=== PATIENT | male | born 1985 | race Caucasian/White ===

== ENCOUNTER 2016-08-06 20:22 | Inpatient (IN) ==
[2016-08-06] MEDS ORDERED: 0.9 % Sodium Chloride 1,000 ML IVC SCH (22:30)
--- NOTE | 2016-08-06 22:57 | Internal Med History&Physical ---
<Wisam Zavala - Last Filed: 08/06/16 23:17> Date of Encounter: 08/06/16 Time of Encounter: 22:00 Assessment and Plan (1) Rhabdomyolysis Current visit: Yes Status: Acute - With elevated CK 1611 and dark urine noted. - Likely secondary to dehydration and/or unknown drug overdose. - Continue aggressive hydration with IV fluid. Will use 1/2 NS now given hypernatremia on initial lab. - Closely monitor with check of CK, renal function and electrolytes. Qualifiers: Rhabdomyolysis type: non-traumatic Qualified Code(s): M62.82 - Rhabdomyolysis (2) LEOPOLDO (acute kidney injury) Current visit: Yes Status: Acute - SCr 1.39. - Likely secondary to dehydration and rhabdomyolysis. - Continue hydration with IV fluid. - Avoid nephrotoxin. - Continue to monitor renal function and electrolytes. (3) Drug overdose Current visit: Yes Status: Acute - Unknown drug(s) at this time but suspect to be some kind of stimulant as patient is noted have dilated pupils and tachycardia. - The history obtained by EMS is that patient was taking Xanax and "spice" but UDS negative including benzodiazepam & THC. - Also negative for salicylates, acetaminophen and Ethanol. - Closely monitor with telemetry. - Patient is currently somnolent and confused. - Will consult social service and appreciate their assistance regarding patient' s drug abuse. - May consider psychiatric consult if patient's confusion persists. Qualifiers: Encounter type: initial encounter Injury intent: undetermined intent Qualified Code(s): T50.904A - Poisoning by unspecified drugs, medicaments and biological substances, undetermined, initial encounter (4) Leukocytosis Current visit: Yes Status: Acute - WBC 21.3 - Likely stress response to current drug overdose in the setting of hemoconcentration from dehydration. - Doubt underlying infection cause but will obtain blood cultures. - Continue to monitor. Qualifiers: Leukocytosis type: unspecified Qualified Code(s): D72.829 - Elevated white blood cell count, unspecified (5) Hyperbilirubinemia Current visit: Yes Status: Acute - Elevated total bilirubin at 2.6. - Unknown etiology at this time. - Will obtain RUQ US for further evaluation. - Continue to monitor. (6) Transaminitis Current visit: Yes Status: Acute - Slightly elevated AST and ALT. - Will obtain RUQ US for further evaluation. - Continue to monitor. Internal Medicine - H&P: HPI Chief complaint: Drug overdose Admitted From: Emergency Dept Plans for Post Hospital Care: Home History of present illness: Mr. Rodriguez is a 30 year old male was sent to [facility] ED for what appeared to be drug overdose. The history obtained by EMS is that he was taking Xanax and "spice". Apparently his mother was at the scene and was also under the influence. Patient was reported to be agitated and confused at [facility] ED where labs suggests leukocytosis, LEOPOLDO and rhabdomyolysis. Patient received 2 L of IV NS bolus and was admitted to [facility] for further evaluation and management. On the encounter in , patient is somnolent but orient to self and place. Patient says no while asking if he has chest pain/ discomfort, dyspnea, abdominal pain, fever or chills. He states he uses drug via inhalation and denies IV drug use. Patient cannot tell me the name of drug he overdosed. Patient admits smoking daily but denies alcohol use. Patient is not answering much of questions asked and not following much commands. Past Med Surg Social Fam HX - Past Medical History Medical history: no medical history Psychiatric history: no psych history - Past Surgical History Surgical History: no surgical history - Social History Smoking Status: Current every day smoker Smokeless Tobacco Status: No Alcohol use: rarely Drug use: none Internal Medicine - H&P: Meds Buprenorphine HCl/Naloxone HCl [Suboxone 8 mg-2 mg Sl Film] 1 film SL BID [History] Allergies No Known Allergies Allergy (Verified 10/17/15 13:33) ROS unobtainable: due to mental status All Systems PM: A 10-system review of systems was performed and is negative for pertinent findings except as documented above in the HPI. - Constitutional Vitals: Temp Pulse Resp BP Pulse Ox 100.2 F H 104 18 150/112 98 08/06/16 21:25 08/06/16 21:55 08/06/16 21:25 08/06/16 21:25 08/06/16 21:25 General appearance: Present: A&O X 2, no acute distress. Absent: answers questions appropriately Exam: Somnolent but arousable with verbal stimuli. Oriented to self and place. Not answering much of questions asked nor following commands. - Head Head exam: Present: atraumatic, normocephalic - Eye Eye exam: Present: EOMI, PERRL (Dilated pupils), conjuntiva pink, sclera anicteric - Neck Neck exam general surgery: Present: supple, trachea midline. Absent: lymphadenopathy - Respiratory Respiratory exam: Present: CTAB. Absent: accessory muscle use, rales, rhonchi, wheezes - Cardiovascular Cardiovascular exam: Present: +S1, +S2, tachycardia. Absent: diastolic murmur, gallop, rubs, systolic murmur - GI/Abdominal GI/Abdominal exam: Present: normal bowel sounds, soft, no peritoneal signs. Absent: distended, tenderness - Extremities Exam Extremities exam: Present: warm, radial pulses palpable and symetrical. Absent : calf tenderness, cyanotic, pedal edema - Neurological Exam Neurological exam: Present: no focal deficits. Absent: pronater drift, facial droop, speech deficit Additional comments: Limited given patient is not answering much of questions asked nor following commands. - Skin Skin exam: Present: dry, intact, warm <Mudduluru,Madhusudha R - Last Filed: 08/07/16 01:30> Date of Encounter: 08/06/16 Assessment and Plan (1) Acute encephalopathy Current visit: Yes Status: Acute Likely secondary to substance abuse/overdose/illicit drug use concern for using synthetic marijuana. I suspect he also used sympathomimetics like amphetamine. Neuro checks; seizure precautions; monitor in the step down unit. Supportive care. (2) Hypernatremia Current visit: Yes Status: Acute Likely due to dehydration. Treat with 0.45% saline infusion. Internal Medicine - H&P: HPI History of present illness: Mr. Rodriguez is a 30 year old male All Systems PM: A 10-system review of systems was performed and is negative for pertinent findings except as documented above in the HPI. - Constitutional Vitals: Temp Pulse Resp BP Pulse Ox 98.6 F 84 22 164/102 97 08/07/16 00:12 08/07/16 00:12 08/07/16 00:12 08/07/16 00:12 08/07/16 00:12 Internal Med - H&P Results - Labs Labs: Urine 08/07/16 Range/Units 00:15 Urine Color Dark Yellow (Yellow) Urine Clarity Clear (Clear) Urine pH 6.0 (5.0-8.0) pH Units Ur Specific [place] > 1.030 H (1.010-1.025) Urine Protein 100 H (Neg-Trace) mg/dL Urine Glucose (UA) Normal (Normal) mg/dL - Attending Attestation I performed history and physical examination of the patient and discussed management with resident/Gill Tender. I reviewed the resident/ Interns note and agree with the documented findings and plan of care. 30 Y/M sent to [facility], for possible drug overdose. Per the history from the EMS , as documented in the ER physicians note the pt was taking Xanax and "spice" . Apparently his mother was at the scene and was also under the influence. Patient was reported to be agitated and confused at [facility], where labs suggests leukocytosis, LEOPOLDO and rhabdomyolysis. Patient received 2 L of IV NS bolus and was admitted to [facility] for further evaluation and management. On my evaluation, pt is not answering question and seemed disoriented. Able to move extremities and neck. Review of systems; past medical, social, and family history could not could not be reviewed with the patient due to mental status changes. O/E: Cardiac: Regular rate and rhythm. Lungs clear to auscultation. Neuro: Patient is disoriented and is not answering questions. Able to move the extremities spontaneously. Labs showed hyponatremia with sodium of 147, creatinine 139, BNP 52, bilirubin 0.6, AST 98, ALT 66, creatinine kinase 1611, WBC 21.3, hemoglobin 19.3, hematocrit 55.5. Urine toxicology screen was negative. CT head reported no acute abnormalities. Chest x-ray negative. A/P: Acute encephalopathy: Likely secondary to substance abuse/overdose/illicit drug use concern for using synthetic marijuana. I suspect he also used sympathomimetics like amphetamine. Neuro checks; seizure precautions; monitor in the step down unit. Supportive care. Rhabdomyolysis: Likely secondary to substance abuse I suspect he may have used amphetamine / methamphetamine as well. Will treat him with intravenous 0.9% saline and 0.45% saline. Monitor CK levels. LEOPOLDO: likely due to rhabdomyolysis, poor oral intake, insensible losses. Patient seemed to be very hemoconcentrated. Treat with IV fluids. Transaminitis / hyperbilirubinemia: Likely due to rhabdomyolysis versus liver injury from substance abuse versus hepatitis. US scan of GB/liver, hepatitis panel, monitor LFTs.
[2016-08-06] MEDS ORDERED: Acetaminophen 325 MG TABLET PO PRN (23:27)
[2016-08-07 00:34] LABS: Bilirubin,Urine Moderate (Negative); Blood,Urine Moderate (Negative); Clarity,Urine Clear (Clear); Color,Urine Dark Yellow (Yellow); Glucose,Urine (UA) Normal (Normal); Ketones,Urine 15 mg/dL (Negative); Leukocyte Esterase,Urine Negative (Negative); Nitrite,Urine Negative (Negative); Protein,Urine 100 mg/dL (Neg-Trace); Specific Gravity,Urine > 1.030 (1.010-1.025)
[2016-08-07 00:36] LABS: Bacteria,Urine None Seen per hpf (None-Few); Hyaline Casts,Urine None Seen per lpf (None-Few); RBC,Urine 0-3 per hpf (0-3); Squamous Epithelial Cell,Urine Many per lpf (None-Few); WBC,Urine 0-3 per hpf (0-3)
[2016-08-07 05:42] LABS: Basophils % 0.1 %; Eosinophils # 0.1 K/mcL (0.0-0.6); Eosinophils % 0.3 %; Hematocrit 50.2 % (37.5-50.1); Hemoglobin 16.4 g/dL (12.9-16.9); Immature Granulocytes % 0.4 % (0-4); Lymphocytes # 2.7 K/mcL (0.6-4.6); Lymphocytes % 17.6 %; Mean Corpuscular HGB Conc 32.7 g/dL (31.6-35.5); Mean Corpuscular Hemoglobin 28.8 pg (28.0-33.3); Mean Corpuscular Volume 88.1 fL (83.0-100.0); Mean Platelet Volume 10.9 fL (9.4-12.4); Monocytes # 2.3 K/mcL (0.0-1.3); Monocytes % 14.8 %; Neutrophils # 10.2 K/mcL (1.6-8.9); Platelet Count 272 K/mcL (140-400); Red Cell Distribution Width 13.5 % (11.5-14.5); Segmented Neutrophils % 66.8 %
[2016-08-07 06:00] LABS: Alanine Aminotransferase 93 Units/L (0-55); Albumin 3.6 g/dL (3.5-5.0); Albumin/Globulin Ratio 1.1 (1.1-2.2); Alkaline Phosphatase 98 Units/L (38-126); Aspartate Amino Transferase 62 Units/L (5-34); BUN/Creatinine Ratio 31 (6-26); Bilirubin,Total 2.4 mg/dL (0.2-1.2); Blood Urea Nitrogen 34 mg/dL (8-26); Calcium 8.5 mg/dL (8.6-10.8); Carbon Dioxide 21 mEq/L (19-29); Chloride 114 mEq/L (98-109); Creatine Kinase 810 Units/L (30-200); Globulin 3.2 g/dL (2.4-3.5); Glucose 114 mg/dL (70-99); Magnesium 2.5 mg/dL (1.6-2.6); Osmolality,Calculated 312 (280-300); Phosphorous 2.6 mg/dL (2.3-4.7); Potassium 3.8 mEq/L (3.5-4.5); Sodium 147 mEq/L (136-145); Total Protein 6.8 g/dL (6.0-8.3); eGFR For African Americans > 60 (> 60); eGFR For Non-African Americans > 60 (> 60)
[2016-08-07 06:18] LABS: Hepatitis A Antibody IgM Nonreactive (Nonreactive); Hepatitis B Core IgM Nonreactive (Nonreactive); Hepatitis B Surface Antigen Nonreactive (Nonreactive); Hepatitis C Virus Antibody Nonreactive (Nonreactive)
--- NOTE | 2016-08-07 10:30 | Internal Med Progress Note ---
Date of Encounter: 08/07/16 Time of Encounter: 10:27 - Assessment and plan (1) Acute encephalopathy Current Visit: Yes Status: Acute Assessment and plan: Likely due to substance abuse, possibly synthetic marijuana per reports. Urine drug screen was negative for any drugs. Mental status noted to be improving but patient continues to have cognitive dysfunction and delirium. Continue supportive care. CT head done in the emergency room showed no acute abnormality. (2) Hypernatremia Current Visit: Yes Status: Acute Assessment and plan: Likely due to dehydration and drug abuse. Continue IV hydration and monitor serum sodium closely. (3) Cannabis abuse with intoxication delirium Current Visit: Yes Status: Acute (4) Rhabdomyolysis Current Visit: Yes Status: Acute Assessment and plan: Likely due to unknown drug abuse. Continue aggressive IV hydration, monitor serum creatinine kinase and renal function. Qualifiers: Rhabdomyolysis type: non-traumatic Qualified Code(s): M62.82 - Rhabdomyolysis (5) LEOPOLDO (acute kidney injury) Current Visit: Yes Status: Acute Assessment and plan: Due to dehydration and drug abuse. Serum creatinine noted to be improving, continue IV hydration. Avoid nephrotoxic agents. (6) Leukocytosis Current Visit: Yes Status: Acute Assessment and plan: Likely a stress response due to drug abuse. Improving. Continue to monitor. Qualifiers: Leukocytosis type: unspecified Qualified Code(s): D72.829 - Elevated white blood cell count, unspecified (7) Transaminitis Current Visit: Yes Status: Acute Assessment and plan: Likely due to fatty liver. Improving slightly. Right upper quadrant ultrasound shows no evidence of gallstones, does show some gallbladder sludge and fatty liver. Viral hepatitis serology negative for now. (8) Drug overdose Current Visit: Yes Status: Acute Assessment and plan: Patient reportedly consumed unknown quantities of unknown illicit drugs and currently is noted to be delirious with muffled speech and mydriatic pupils. He also has sympathomimetic response with tachycardia and hypertension. We will use when necessary oral clonidine and IV hydralazine for appropriate blood pressure and heart rate control. Supportive care. High risk for complications. Continue telemetry monitoring and trend troponins. Qualifiers: Encounter type: initial encounter Injury intent: accidental or unintentional Qualified Code(s): T50.901A - Poisoning by unspecified drugs, medicaments and biological substances, accidental (unintentional), initial encounter - Subjective Interval history: Feels better today; able to speak, although slightly muffled; reports being very hungry and requests food; no chest pain, does have some right-sided abdominal pain; - Constitutional Vitals: Temp Pulse Resp BP Pulse Ox 98.1 F 60 18 142/91 98 08/07/16 07:17 08/07/16 07:17 08/07/16 07:17 08/07/16 07:17 08/07/16 07:17 General appearance: Present: A&O X 2, answers questions appropriately - Eye Eye exam: Present: PERRL, conjuntiva pink, sclera anicteric Pupils: Present: mydriatic - Respiratory Respiratory exam: Present: CTAB. Absent: accessory muscle use, rales, rhonchi, wheezes - Cardiovascular Cardiovascular exam: Present: RRR, +S1, +S2. Absent: diastolic murmur, gallop, rubs, systolic murmur - GI/Abdominal GI/Abdominal exam: Present: normal bowel sounds, soft (mildly tender in RUQ, no guarding/rigidity), no peritoneal signs. Absent: distended, tenderness - Extremities Exam Extremities exam: Present: full ROM, warm, radial pulses palpable and symetrical. Absent: calf tenderness, cyanotic, pedal edema Internal Medicine: Result - Labs CBC & Chem 7: 08/07/16 05:02 08/07/16 05:02 Labs: Short CBC 08/07/16 Range/Units 05:02 WBC 15.2 H (4.3-11.1) K/mcL Hgb 16.4 D (12.9-16.9) g/dL Hct 50.2 H (37.5-50.1) % Plt Count 272 (140-400) K/mcL Neutrophils # 10.2 H (1.6-8.9) K/mcL BMP 08/07/16 05:02 Sodium 147 H Potassium 3.8 Chloride 114 H Carbon Dioxide 21 BUN 34 H D Creatinine 1.09 Glucose 114 H Calcium 8.5 L Liver Function 08/07/16 Range/Units 05:02 Total Bilirubin 2.4 H (0.2-1.2) mg/dL AST 62 H (5-34) Units/L ALT 93 H (0-55) Units/L Alkaline Phosphatase 98 (38-126) Units/L Albumin 3.6 (3.5-5.0) g/dL Urine 08/07/16 Range/Units 00:15 Urine Color Dark Yellow (Yellow) Urine Clarity Clear (Clear) Urine pH 6.0 (5.0-8.0) pH Units Ur Specific [place] > 1.030 H (1.010-1.025) Urine Protein 100 H (Neg-Trace) mg/dL Urine Glucose (UA) Normal (Normal) mg/dL - Impressions Impressions Gallbladder Ultrasound 08/07/16 09:30 IMPRESSION: Gallbladder sludge, without ancillary evidence of acute cholecystitis. Heterogeneous hepatic echotexture, which can be in keeping with fatty liver or hepatocellular disease. D/ / Florencio Sweeney MD / Florencio Sweeney MD Interpreting Provider: Florencio Sweeney MD Consult Discharge Plan - Plan Referrals: NO,PCP [Primary Care Provider] -
--- NOTE | 2016-08-07 11:40 | Electrocardiograph Report ---
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
[2016-08-07] MEDS: *HR* LORazepam 2 MG/ML VIAL IVP PRN ×2 (12:42→18:11)
[2016-08-07] MEDS ORDERED: *HR* Buprenorphine HCl 2 MG SUBLINGUAL TABLET SL SCH (13:13)
[2016-08-07] MEDS ORDERED: Nicotine 14 MG PATCH.TD24 TD PRN (14:31)
[2016-08-07] MEDS ORDERED: cloNIDine HCl 0.1 MG TABLET PO PRN (14:49)
[2016-08-07 17:25] LABS: BUN/Creatinine Ratio 27 (6-26); Blood Urea Nitrogen 27 mg/dL (8-26); Calcium 8.7 mg/dL (8.6-10.8); Carbon Dioxide 17 mEq/L (19-29); Chloride 116 mEq/L (98-109); Glucose 99 mg/dL (70-99); Osmolality,Calculated 305 (280-300); Sodium 145 mEq/L (136-145); eGFR For African Americans > 60 (> 60); eGFR For Non-African Americans > 60 (> 60)
[2016-08-07] MEDS: *HR* Buprenorphine HCl 2 MG SUBLINGUAL TABLET SL SCH (21:22)
[2016-08-08] MEDS: *HR* Buprenorphine HCl 2 MG SUBLINGUAL TABLET SL SCH ×4 (03:06→21:45)
[2016-08-08 04:58] LABS: Basophils % 0.2 %; Eosinophils # 0.4 K/mcL (0.0-0.6); Eosinophils % 3.1 %; Hematocrit 48.3 % (37.5-50.1); Hemoglobin 15.9 g/dL (12.9-16.9); Immature Granulocytes % 0.3 % (0-4); Lymphocytes # 4.3 K/mcL (0.6-4.6); Lymphocytes % 34.9 %; Mean Corpuscular HGB Conc 32.9 g/dL (31.6-35.5); Mean Corpuscular Hemoglobin 29.3 pg (28.0-33.3); Mean Platelet Volume 11.4 fL (9.4-12.4); Monocytes # 1.5 K/mcL (0.0-1.3); Monocytes % 11.9 %; Neutrophils # 6.1 K/mcL (1.6-8.9); Platelet Count 216 K/mcL (140-400); Red Blood Count 5.43 M/mcL (4.19-5.50); Red Cell Distribution Width 13.4 % (11.5-14.5); Segmented Neutrophils % 49.6 %
[2016-08-08 05:26] LABS: Alanine Aminotransferase 105 Units/L (0-55); Albumin 3.2 g/dL (3.5-5.0); Alkaline Phosphatase 76 Units/L (38-126); Aspartate Amino Transferase 49 Units/L (5-34); BUN/Creatinine Ratio 20 (6-26); Blood Urea Nitrogen 21 mg/dL (8-26); Calcium 8.7 mg/dL (8.6-10.8); Carbon Dioxide 19 mEq/L (19-29); Chloride 115 mEq/L (98-109); Globulin 3.2 g/dL (2.4-3.5); Glucose 122 mg/dL (70-99); Osmolality,Calculated 302 (280-300); Potassium 3.6 mEq/L (3.5-4.5); Sodium 144 mEq/L (136-145); Total Protein 6.4 g/dL (6.0-8.3); eGFR For African Americans > 60 (> 60); eGFR For Non-African Americans > 60 (> 60)
[2016-08-08 05:32] LABS: Bilirubin,Total 1.1 mg/dL (0.2-1.2)
[2016-08-08] MEDS ORDERED: 0.9 % Sodium Chloride 500 ML IVC ONE (10:31)
--- NOTE | 2016-08-08 10:31 | Internal Med Progress Note ---
Date of Encounter: 08/08/16 Time of Encounter: 10:30 - Assessment and plan (1) Acute encephalopathy Current Visit: Yes Status: Resolved Assessment and plan: Mental status back to baseline, able to converse appropriately, improved speech. (2) Hypernatremia Current Visit: Yes Status: Acute Assessment and plan: Improving with IV hydration. Continue half normal saline for now. Patient is also noted to be very thirsty, encourage oral hydration and will give 500 mL normal saline fluid bolus. (3) Cannabis abuse with intoxication delirium Current Visit: Yes Status: Resolved (4) Rhabdomyolysis Current Visit: Yes Status: Acute Assessment and plan: Continue IV hydration. No evidence of renal failure. Qualifiers: Rhabdomyolysis type: non-traumatic Qualified Code(s): M62.82 - Rhabdomyolysis (5) LEOPOLDO (acute kidney injury) Current Visit: Yes Status: Resolved Assessment and plan: Serum creatinine improved to baseline. Continue IV hydration. (6) Leukocytosis Current Visit: Yes Status: Resolved Assessment and plan: Likely stress induced due to drug abuse. Improved today. Qualifiers: Leukocytosis type: unspecified Qualified Code(s): D72.829 - Elevated white blood cell count, unspecified (7) Transaminitis Current Visit: Yes Status: Acute Assessment and plan: Likely due to fatty liver. Improving slowly. Right upper quadrant ultrasound shows no evidence of gallstones, does show some gallbladder sludge and fatty liver. Viral hepatitis serology negative for now. (8) Drug overdose Current Visit: Yes Status: Acute Assessment and plan: Patient reportedly consumed unknown quantities of unknown illicit drugs, possible stimulants. His mental status is back to baseline today but he continues to have tachycardia and hypertension. We will use when necessary oral clonidine and IV hydralazine for appropriate blood pressure and heart rate control. Supportive care. Serum troponins noted to be normal and telemetry shows sinus tachycardia. Qualifiers: Encounter type: initial encounter Injury intent: accidental or unintentional Qualified Code(s): T50.901A - Poisoning by unspecified drugs, medicaments and biological substances, accidental (unintentional), initial encounter - Subjective Interval history: Improved; more oriented today; improved muffled speech; continues to have high BP and HR and diaphoresis; improving strength; - Constitutional Vitals: Temp Pulse Resp BP Pulse Ox 98.2 F 107 18 163/95 100 08/08/16 07:42 08/08/16 08:35 08/08/16 07:42 08/08/16 07:42 08/08/16 08:35 General appearance: Present: A&O X 2, answers questions appropriately - Respiratory Respiratory exam: Present: CTAB. Absent: accessory muscle use, rales, rhonchi, wheezes - Cardiovascular Cardiovascular exam: Present: RRR, +S1, +S2, tachycardia. Absent: diastolic murmur, gallop, rubs, systolic murmur - GI/Abdominal GI/Abdominal exam: Present: normal bowel sounds, soft, no peritoneal signs. Absent: distended, tenderness - Extremities Exam Extremities exam: Present: full ROM, warm, radial pulses palpable and symetrical. Absent: calf tenderness, cyanotic, pedal edema Internal Medicine: Result - Labs CBC & Chem 7: 08/08/16 04:12 08/08/16 04:12 Labs: Short CBC 08/08/16 Range/Units 04:12 WBC 12.2 H (4.3-11.1) K/mcL Hgb 15.9 (12.9-16.9) g/dL Hct 48.3 (37.5-50.1) % Plt Count 216 (140-400) K/mcL Neutrophils # 6.1 (1.6-8.9) K/mcL BMP 08/07/16 08/08/16 16:10 04:12 Sodium 145 144 Potassium 4.0 3.6 Chloride 116 H 115 H Carbon Dioxide 17 L 19 BUN 27 H 21 Creatinine 1.01 1.05 Glucose 99 122 H Calcium 8.7 8.7 Cardiac Enzymes 08/08/16 Range/Units 04:12 Troponin I 0.00 (0-0.03) ng/mL Liver Function 08/08/16 Range/Units 04:12 Total Bilirubin 1.1 D (0.2-1.2) mg/dL AST 49 H (5-34) Units/L ALT 105 H (0-55) Units/L Alkaline Phosphatase 76 (38-126) Units/L Albumin 3.2 L (3.5-5.0) g/dL Consult Discharge Plan - Plan Referrals: Marilu Grimaldo, FILTER W[employer]ER [employer] PRESSER [Advanced Practice Nurse] - 08/22/16 8:00 am (PLEASE TAKE YOUR NEW PATIENT PACKET FILLED OUT WITH YOU TO YOUR APPOINTMENT. TAKE PICTURE ID, INSURANCE CARDS, ALL MEDICATIONS WITH YOU IN THE BOTTLES. SHOW UP 30 MINUTES EARLY FOR YOUR APPOINTMENT. IF YOU HAVE TO CANCEL PLEASE DO SO WITHIN 24 HOURS OF YOU APPOINTMENT AT [phone].) NO,PCP [Primary Care Provider] -
[2016-08-08] MEDS ORDERED: 0.9 % Sodium Chloride 500 ML ONE (10:33)
[2016-08-09] MEDS: *HR* Buprenorphine HCl 2 MG SUBLINGUAL TABLET SL SCH ×2 (02:50→07:59)
[2016-08-09] MEDS ORDERED: Ondansetron 4 MG/2 ML VIAL IVP ONE (03:19)
[2016-08-09 04:57] LABS: Basophils % 0.4 %; Eosinophils # 0.5 K/mcL (0.0-0.6); Eosinophils % 6.4 %; Hematocrit 42.8 % (37.5-50.1); Immature Granulocytes % 0.3 % (0-4); Lymphocytes # 2.9 K/mcL (0.6-4.6); Lymphocytes % 38.1 %; Mean Corpuscular HGB Conc 33.4 g/dL (31.6-35.5); Mean Corpuscular Hemoglobin 29.3 pg (28.0-33.3); Mean Corpuscular Volume 87.7 fL (83.0-100.0); Mean Platelet Volume 11.2 fL (9.4-12.4); Monocytes % 12.6 %; Neutrophils # 3.2 K/mcL (1.6-8.9); Platelet Count 188 K/mcL (140-400); Red Blood Count 4.88 M/mcL (4.19-5.50); Segmented Neutrophils % 42.2 %
[2016-08-09 05:01] LABS: Hemoglobin 14.3 g/dL (12.9-16.9)
[2016-08-09 05:12] LABS: BUN/Creatinine Ratio 14 (6-26); Blood Urea Nitrogen 12 mg/dL (8-26); Calcium 8.3 mg/dL (8.6-10.8); Carbon Dioxide 20 mEq/L (19-29); Chloride 115 mEq/L (98-109); Creatine Kinase 134 Units/L (30-200); Glucose 90 mg/dL (70-99); Osmolality,Calculated 299 (280-300); Sodium 145 mEq/L (136-145); eGFR For African Americans > 60 (> 60); eGFR For Non-African Americans > 60 (> 60)
[2016-08-09 05:24] LABS: Potassium 4.2 mEq/L (3.5-4.5)
[2016-08-09 11:58] VITALS: BP 128/86
--- NOTE | 2016-08-09 12:05 | Discharge Summary ---
Date of Encounter: 08/09/16 Time of Encounter: 12:02 - Discharge Diagnosis (1) Acute encephalopathy Priority: Primary Status: Resolved (2) Hypernatremia Priority: Primary Status: Resolved (3) Cannabis abuse with intoxication delirium Priority: Primary Status: Resolved (4) Rhabdomyolysis Priority: Primary Status: Resolved Qualifiers: Rhabdomyolysis type: non-traumatic Qualified Code(s): M62.82 - Rhabdomyolysis (5) LEOPOLDO (acute kidney injury) Priority: Primary Status: Resolved (6) Leukocytosis Priority: Primary Status: Resolved Qualifiers: Leukocytosis type: unspecified Qualified Code(s): D72.829 - Elevated white blood cell count, unspecified (7) Transaminitis Priority: Primary Status: Resolved (8) Drug overdose Priority: Primary Status: Acute Qualifiers: Encounter type: initial encounter Injury intent: accidental or unintentional Qualified Code(s): T50.901A - Poisoning by unspecified drugs, medicaments and biological substances, accidental (unintentional), initial encounter - Discharge Medications Home Medications: Buprenorphine HCl/Naloxone HCl [Suboxone 8 mg-2 mg Sl Film] 1 film SL BID [History] Allergies/Adverse Reactions: Allergies No Known Allergies Allergy (Verified 10/17/15 13:33) Procedures/tests Complete & Pending: Procedures Performed prior 72 hours Category Date Time Status US gall bladder [US] Routine Exams 08/07/16 09:30 Completed EKG [ECG 12 lead ECG] [ECG] Stat Y 08/06/16 22:20 Completed Date of admission: 08/07/16 02:36 Primary care physician: PCP NO Consults: 08/06/16 22:50 Consult to Table Games Floor Supervisor [CONS] Routine Reason for SW Consult: Drug use/overdose Discharging clinician: Esther Gonzalez Anticipated date of discharge: 08/09/16 - Patient Status Disposition: Home, Self-Care Condition: Good Functional capacity at discharge: independent ambulation Overall status at discharge: patient is progressing back to baseline - Discharge Instructions Follow Up With: Marilu Grimaldo ANDROID SOFTWARE ENGINEER [Advanced Practice Nurse] - 08/22/16 8:00 am (PLEASE TAKE YOUR NEW PATIENT PACKET FILLED OUT WITH YOU TO YOUR APPOINTMENT. TAKE PICTURE ID, INSURANCE CARDS, ALL MEDICATIONS WITH YOU IN THE BOTTLES. SHOW UP 30 MINUTES EARLY FOR YOUR APPOINTMENT. IF YOU HAVE TO CANCEL PLEASE DO SO WITHIN 24 HOURS OF YOU APPOINTMENT AT [phone].) - Diet and Activity Activity: resume usual activities as tolerated Diet: regular diet Hospital course: Mr. Rodriguez is a 30 year old male with no significant past medical history was admitted after being found unresponsive with suspected drug use. Urine drug screen did not test positive for any common drugs. Patient reportedly overdosed on synthetic marijuana/spice. He was also noted to have mild acute kidney injury along with rhabdomyolysis. He was initially noted to be somnolent , gradually became more alert but weak and delirious. He was given aggressive IV hydration along with supplemental oxygen and supportive care. He was also noted to have slightly elevated liver enzymes. Right upper quadrant ultrasound showed some gallbladder sludge with no evidence of gallstones or cholecystitis. Viral hepatitis profile remains negative. Patient was also noted to have sympathomimetic response with mydriasis, tachycardia and hypertension and he received when necessary clonidine and IV hydralazine for symptom control. Telemetry monitoring showed sinus tachycardia and troponins were noted to be normal. Patient gradually improved and is currently alert and oriented, tolerates oral diet and remains hemodynamically stable. He was seen by social worker clinical and declined resources for drug rehabilitation. He is medically stable for discharge. - Time Spent with Patient Total time spent providing and/or coordinating discharge services: Greater than 30 minutes (45 min) - Constitutional Vitals: Temp Pulse Resp BP Pulse Ox 98.5 F 84 16 128/86 99 08/09/16 10:19 08/09/16 10:19 08/09/16 10:19 08/09/16 10:19 08/09/16 10:19 General appearance: Present: A&O X 2, answers questions appropriately - Respiratory Respiratory exam: Present: CTAB. Absent: accessory muscle use, rales, rhonchi, wheezes - Cardiovascular Cardiovascular exam: Present: RRR, +S1, +S2. Absent: diastolic murmur, gallop, rubs, systolic murmur
== END 2016-08-09 12:42 | disposition home or self-care (01) | DRG 812 ==
LOC: 2NNU → 2ANU 08-08 17:59
PROVIDERS: ADMIT Internal Medicine; ATTEND Internal Medicine

== ENCOUNTER 2020-08-16 09:39 | Observation (INO) ==
[2020-08-16 11:01] LABS: Basophils % 0.4 %; Eosinophils # 0.1 K/mcL (0.0-0.6); Hematocrit 47.2 % (37.5-50.1); Hemoglobin 15.5 g/dL (12.9-16.9); Immature Granulocytes % 0.2 % (0-4); Lymphocytes # 1.7 K/mcL (0.6-4.6); Lymphocytes % 18.3 %; Mean Corpuscular HGB Conc 32.8 g/dL (31.6-35.5); Mean Corpuscular Hemoglobin 29.2 pg (28.0-33.3); Mean Corpuscular Volume 88.9 fL (83.0-100.0); Mean Platelet Volume 10.2 fL (9.4-12.4); Monocytes # 0.6 K/mcL (0.0-1.3); Monocytes % 6.4 %; Neutrophils # 6.6 K/mcL (1.6-8.9); Platelet Count 227 K/mcL (140-400); Red Blood Count 5.31 M/mcL (4.19-5.50); Red Cell Distribution Width 12.3 % (11.5-14.5); Segmented Neutrophils % 73.7 %
[2020-08-16 11:17] LABS: Acetaminophen < 10 mcg/mL (10-20); Alanine Aminotransferase 32 Units/L (7-52); Albumin 4.1 g/dL (3.5-5.7); Albumin/Globulin Ratio 1.4 (1.1-2.2); Alkaline Phosphatase 68 Units/L (34-104); Aspartate Amino Transferase 19 Units/L (13-39); BUN/Creatinine Ratio 17 (6-26); Bilirubin,Direct 0.1 mg/dL (0.0-0.2); Bilirubin,Indirect 0.3 mg/dL (0.0-1.0); Bilirubin,Total 0.4 mg/dL (0.3-1.0); Blood Urea Nitrogen 16 mg/dL (6-20); Calcium 9.1 mg/dL (8.6-10.3); Carbon Dioxide 27 mEq/L (23-29); Chloride 104 mEq/L (98-107); Ethanol < 10 mg/dL (Less than 10); Glucose 114 mg/dL (70-105); Osmolality,Calculated 288 (280-300); Potassium 4.3 mEq/L (3.5-5.1); Salicylate < 2.5 mg/dL (15.0-30.0); Sodium 138 mEq/L (136-145); Total Protein 7.1 g/dL (6.4-8.9); eGFR For African Americans > 60 (> 60); eGFR For Non-African Americans > 60 (> 60)
[2020-08-16 13:06] LABS: Bilirubin,Urine Negative (Negative); Blood,Urine Negative (Negative); Clarity,Urine Turbid (Clear); Color,Urine Light-Yellow (Yellow); Glucose,Urine (UA) Normal (Normal); Ketones,Urine Negative (Negative); Leukocyte Esterase,Urine Negative (Negative); Mucus,Urine Few per lpf (None-Few); Nitrite,Urine Negative (Negative); PH,Urine 8.5 pH Units (5.0-8.0); Protein,Urine Trace mg/dL (Neg-Trace); Specific Gravity,Urine 1.022 (1.010-1.025); Squamous Epithelial Cell,Urine Few per hpf (None-Few); Urobilinogen,Urine Normal (Normal); WBC,Urine 0-3 per hpf (0-3)
[2020-08-16 13:23] LABS: Amphetamine Screen,Urine Negative ng/mL (Cutoff=1000); Barbiturate Screen,Urine Negative ng/mL (Cutoff=200); Benzodiazepines Screen,Urine Positive ng/mL (Cutoff=200); Cannabinoid Screen,Urine Negative ng/mL (Cutoff = 50); Cocaine Screen,Urine Negative ng/mL (Cutoff= 300); Opiate Screen,Urine Negative ng/mL (Cutoff=300); Phencyclidine Screen,Urine Negative ng/mL (Cutoff=25)
[2020-08-16] MEDS ORDERED: *HR* Buprenorphine HCl 2 MG SUBLINGUAL TABLET SL SCH (13:30)
[2020-08-16] MEDS ORDERED: *HR* Buprenorphine HCl 2 MG SUBLINGUAL TABLET SL STA (13:57)
[2020-08-16] MEDS ORDERED: Ondansetron 4 MG/2 ML VIAL IVP PRN (16:43)
[2020-08-16] MEDS ORDERED: Naloxone 0.4 MG/ML INJ IVP PRN (16:43)
[2020-08-16] MEDS ORDERED: *HR* LORazepam 2 MG/ML VIAL IVP PRN ×2 (17:03)
[2020-08-16] MEDS ORDERED: Loratadine 10 MG TABLET PO PRN (17:07)
[2020-08-16] MEDS: 0.9 % Sodium Chloride 1,000 ML IVC SCH (18:11)
[2020-08-16] MEDS: *HR* LORazepam 2 MG/ML VIAL IVP PRN (20:50)
[2020-08-16] MEDS ORDERED: BUPRENORPHINE NALOXONE PO SCH (21:00)
[2020-08-16] MEDS ORDERED: Melatonin 3 MG TABLET PO SCH (21:30)
[2020-08-16] MEDS ORDERED: *HR* Buprenorphine HCl 2 MG SUBLINGUAL TABLET SL ONE (21:45)
[2020-08-17 01:06] LABS: Basophils % 0.2 %; Hematocrit 46.1 % (37.5-50.1); Hemoglobin 15.1 g/dL (12.9-16.9); Immature Granulocytes % 0.3 % (0-4); Mean Corpuscular HGB Conc 32.8 g/dL (31.6-35.5); Mean Corpuscular Volume 88.7 fL (83.0-100.0); Mean Platelet Volume 10.3 fL (9.4-12.4); Monocytes # 0.8 K/mcL (0.0-1.3); Monocytes % 6.4 %; Neutrophils # 9.8 K/mcL (1.6-8.9); Platelet Count 271 K/mcL (140-400); Red Cell Distribution Width 12.3 % (11.5-14.5); Segmented Neutrophils % 77.1 %; White Blood Count 12.7 K/mcL (4.3-11.1)
[2020-08-17 01:20] LABS: BUN/Creatinine Ratio 18 (6-26); Blood Urea Nitrogen 14 mg/dL (6-20); Carbon Dioxide 21 mEq/L (23-29); Chloride 107 mEq/L (98-107); Glucose 122 mg/dL (70-105); Osmolality,Calculated 288 (280-300); Potassium 3.8 mEq/L (3.5-5.1); Sodium 138 mEq/L (136-145); eGFR For African Americans > 60 (> 60); eGFR For Non-African Americans > 60 (> 60)
[2020-08-17 06:50] VITALS: BP 137/89
[2020-08-17] MEDS: *HR* LORazepam 2 MG/ML VIAL IVP PRN (06:54)
[2020-08-17] MEDS: 0.9 % Sodium Chloride 1,000 ML IVC SCH (07:39)
[2020-08-17] MEDS ORDERED: Vitamin B Complex/Vit C/Vit E 1 EACH TABLET PO SCH (09:00)
[2020-08-17] MEDS ORDERED: Thiamine (B-1) 100 MG TABLET PO SCH (09:00)
[2020-08-17] MEDS ORDERED: Folic Acid 1 MG TABLET PO SCH (09:00)
[2020-08-17] MEDS ORDERED: *HR* Buprenorphine HCl 8 MG TAB.SUBL SL SCH (09:00)
== END 2020-08-17 12:02 | disposition other institution (70) ==
LOC: EMEROOARM 09:39 → 3BNU 09:39 → SUATTDRO 13:50 → 3BNU 16:41
PROVIDERS: ADMIT Internal Medicine; ATTEND Family Medicine